=== PATIENT | female | born 1950 | race Caucasian/White ===

== ENCOUNTER 2018-02-21 21:24 | Inpatient (IN) | payer MEDICAID ==
[~2018-02-21] VITALS: Ht 162.6 cm; Wt 60.8 kg
[2018-02-21 21:29] VITALS: BP 173/81
[2018-02-21] MEDS ORDERED: DICYCLOMINE HCL LIQUID 20 MG, ALUMINUM HYD/MAG/SIMETHICONE 30 ML, LIDOCAINE VISCOUS 2% ... PO ONE ×3 (21:40)
[2018-02-21] MEDS ORDERED: ONDANSETRON 4 MG/2 ML VIAL IVP ONE (21:45)
[2018-02-21] MEDS ORDERED: NACL 0.9% 1,000 ML IV ONE ×2 (21:45→23:30)
[2018-02-21 22:10] LABS: BASOPHILS # (AUTO) 0.1 K/uL (0.00-0.22); BASOPHILS % (AUTO) 0.5 % (0.0-2.0); EOSINOPHILS # (AUTO) 0.2 K/uL (0-0.4); EOSINOPHILS % (AUTO) 1.3 % (0.0-4.0); HEMATOCRIT 31.8 % (36-48); HEMOGLOBIN 10.8 g/dL (12.0-16.0); LYMPHOCYTES # (AUTO) 5.9 K/uL (2.5-16.5); LYMPHOCYTES % (AUTO) 47.6 % (20.5-51.1); MEAN CORPUSCULAR HEMOGLOBIN 32 pg (27-31); MEAN CORPUSCULAR HGB CONC 34 g/dL (33-37); MEAN CORPUSCULAR VOLUME 92.9 fL (80-94); MONOCYTES # (AUTO) 0.8 K/uL (0.8-1.0); MONOCYTES % (AUTO) 6.5 % (1.7-9.3); NEUTROPHILS # (AUTO) 5.5 K/uL (1.8-7.7); NEUTROPHILS % (AUTO) 44.1 % (42.2-75.2); PLATELET COUNT (AUTO) 174 K/uL (140-450); RED BLOOD CELL COUNT(AUTO) 3.42 MIL/uL (4.20-5.40); WHITE BLOOD COUNT (AUTO) 12.5 K/uL (4.8-10.8)
[2018-02-21] MEDS ORDERED: MORPHINE SULFATE 4 MG/ML SYR IVP ONE (22:10)
[2018-02-21 22:21] LABS: APPEARANCE,URINE CLEAR (CLEAR); BILIRUBIN,URINE NEGATIVE (NEGATIVE); BLOOD, URINE NEGATIVE (NEGATIVE); COLOR,URINE YELLOW (YELLOW); LEUKOCYTE ESTERASE ,URINE TRACE (NEGATIVE); NITRITE, URINE NEGATIVE (NEGATIVE); UGLUCOSE NEGATIVE (NEGATIVE)
[2018-02-21 22:21] LABS: ANION GAP 17.1 (8-16); CARBON DIOXIDE 23.6 mmol/L (21-32); CREATININE 2.1 mg/dL (0.6-1.3); POTASSIUM 3.7 mmol/L (3.5-5.1)
[2018-02-21 22:27] LABS: ALBUMIN 3.9 g/dL (3.4-5.0); TOTAL BILIRUBIN 0.3 mg/dL (0.0-1.0)
[2018-02-21] MEDS ORDERED: PIPERACILLIN/TAZOBACTAM 3.375 GM in DEXTROSE 5% 50 ML IV ONE (22:55)
[2018-02-21] MEDS ORDERED: PIPERACILLIN/TAZOBACTAM 3.375 GM VIAL IV ONE (23:01)
[2018-02-21] MEDS ORDERED: HYDR-133 PO (23:24)
[2018-02-21] MEDS ORDERED: SYN.05 PO (23:24)
[2018-02-21] MEDS ORDERED: HYDROcodone/APAP 7.5/325 MG 1 TAB PO PRN (23:30)
[2018-02-21] MEDS ORDERED: ACETAMINOPHEN 325 MG TAB PO PRN (23:30)
[2018-02-22 00:06] LABS: BARBITURATE, URINE NEG. ng/ml (NEG <=200); BENZODIAZEPINE, URINE NEG. ng/mL (NEG <=200); CANNABINOID, URINE NEG. ng/mL (NEG <=50); COCAINE, URINE NEG. ng/mL (NEG <=300); OPIATE, URINE NEG. ng/mL (NEG <=2000); PHENCYCLIDINE SCREEN,URINE NEG. ng/mL (NEG <=25)
[2018-02-22 00:22] LABS: CHOL/HDL RATIO 7.1 (1-4.5); FREE T4 (FREE THYROXINE) 0.95 ng/dL (0.76-1.46); MAGNESIUM 2.2 mg/dL (1.8-2.4); PHOSPHORUS 3.2 mg/dL (2.5-4.9); THYROID STIMULATING HORMONE 5.01 uIU/mL (0.34-3.74)
[2018-02-22 00:35] LABS: RBC,URINE 0-5 (RARE) /HPF (0-5); WBC,URINE 0-5 (RARE) /HPF (0-5)
[2018-02-22] MEDS ORDERED: MORPHINE SULFATE 4 MG/ML SYR IVP PRN (00:55)
[2018-02-22 01:36] VITALS: BP 144/70
[2018-02-22] MEDS: NACL 0.9% 1,000 ML IV SCH ×3 (03:00→09:02)
[2018-02-22 04:00] VITALS: BP 146/65
[2018-02-22] MEDS ORDERED: LEVOTHYROXINE 0.05 MG TAB PO SCH (06:30)
[2018-02-22] MEDS: GEMFIBROZIL 600 MG TAB PO SCH ×2 (06:47→16:53)
[2018-02-22 07:01] LABS: BASOPHILS % (AUTO) 0.3 % (0.0-2.0); EOSINOPHILS % (AUTO) 0.3 % (0.0-4.0); HEMATOCRIT 29.8 % (36-48); LYMPHOCYTES # (AUTO) 2.2 K/uL (2.5-16.5); LYMPHOCYTES % (AUTO) 19.2 % (20.5-51.1); MEAN CORPUSCULAR HEMOGLOBIN 31 pg (27-31); MEAN CORPUSCULAR HGB CONC 34 g/dL (33-37); MEAN CORPUSCULAR VOLUME 93.5 fL (80-94); MONOCYTES # (AUTO) 0.5 K/uL (0.8-1.0); MONOCYTES % (AUTO) 4.3 % (1.7-9.3); NEUTROPHILS # (AUTO) 8.8 K/uL (1.8-7.7); NEUTROPHILS % (AUTO) 75.9 % (42.2-75.2); PLATELET COUNT (AUTO) 152 K/uL (140-450); RED BLOOD CELL COUNT(AUTO) 3.19 MIL/uL (4.20-5.40); RED CELL DISTRIBUTION WIDTH 13.2 % (11.6-13.7); WHITE BLOOD COUNT (AUTO) 11.6 K/uL (4.8-10.8)
[2018-02-22 07:27] LABS: CREATININE 1.8 mg/dL (0.6-1.3)
[2018-02-22 08:00] VITALS: BP 129/63
[2018-02-22] MEDS ORDERED: PANTOPRAZOLE 40 MG TABEC PO SCH (09:00)
[2018-02-22] MEDS ORDERED: LEVOFLOXACIN 250 MG/D5 PREMIX 50 ML IV SCH (09:00)
[2018-02-22] MEDS: ATORVASTATIN 20 MG TAB PO SCH ×2 (09:00→09:01)
[2018-02-22] MEDS: LACTOBACILLUS RHAMNOSUS GG 1 EACH CAP PO SCH (09:01)
[2018-02-22] MEDS: DOCUSATE SODIUM 100 MG GELCAP PO SCH ×2 (09:02→21:25)
[2018-02-22 10:06] LABS: MAGNESIUM 1.9 mg/dL (1.8-2.4)
[2018-02-22] MEDS ORDERED: NACL 0.45% 1,000 ML IV SCH (11:00)
[2018-02-22] MEDS ORDERED: KETOROLAC 30 MG/ML VIAL IVP PRN (11:00)
[2018-02-22] MEDS ORDERED: traMADol 50 MG TAB PO PRN (11:00)
[2018-02-22 12:00] VITALS: BP 137/60
[2018-02-22] MEDS ORDERED: CALCIUM GLUCONATE 10% 1,000 MG in NACL 0.9% 100 ML IV SCH (12:00)
[2018-02-22] MEDS ORDERED: PROPYLTHIOURACIL 50 MG TAB PO PRN (12:05)
[2018-02-22] MEDS ORDERED: PROPRANOLOL 20 MG TAB PO PRN (12:05)
[2018-02-22] MEDS: ONDANSETRON 4 MG/2 ML VIAL IVP PRN (12:06)
[2018-02-22] MEDS ORDERED: KETOROLAC 15 MG/ML VIAL IVP PRN (13:00)
[2018-02-22] MEDS ORDERED: MAG SULF 2000 MG/WATER PREMIX 50 ML IV SCH (13:00)
[2018-02-22] MEDS: LACTATED RINGERS 1,000 ML IV SCH ×3 (13:36→21:26)
[2018-02-22 16:00] VITALS: BP 134/62
[2018-02-22 19:56] LABS: ANION GAP 18.3 (8-16); CARBON DIOXIDE 19.8 mmol/L (21-32); CREATININE 1.6 mg/dL (0.6-1.3); POTASSIUM 4.1 mmol/L (3.5-5.1)
[2018-02-22 20:00] VITALS: BP 140/68
[2018-02-22] MEDS: SENNA 8.6 MG TAB PO SCH (21:26)
[2018-02-23] VITALS: BP 130/65
[2018-02-23] MEDS: LACTATED RINGERS 1,000 ML IV SCH ×2 (03:50→08:37)
[2018-02-23 04:00] VITALS: BP 132/65
[2018-02-23 06:22] LABS: T4 (THYROXINE) 6.2 ug/dL (4.5-12.0)
[2018-02-23 06:48] LABS: BASOPHILS % (AUTO) 0.5 % (0.0-2.0); EOSINOPHILS # (AUTO) 0.1 K/uL (0-0.4); EOSINOPHILS % (AUTO) 1.4 % (0.0-4.0); HEMATOCRIT 26.9 % (36-48); HEMOGLOBIN 9.3 g/dL (12.0-16.0); LYMPHOCYTES # (AUTO) 2.1 K/uL (2.5-16.5); LYMPHOCYTES % (AUTO) 24.2 % (20.5-51.1); MEAN CORPUSCULAR HEMOGLOBIN 32 pg (27-31); MEAN CORPUSCULAR HGB CONC 35 g/dL (33-37); MEAN CORPUSCULAR VOLUME 93.1 fL (80-94); MONOCYTES # (AUTO) 0.6 K/uL (0.8-1.0); MONOCYTES % (AUTO) 6.3 % (1.7-9.3); NEUTROPHILS % (AUTO) 67.6 % (42.2-75.2); PLATELET COUNT (AUTO) 142 K/uL (140-450); RED BLOOD CELL COUNT(AUTO) 2.89 MIL/uL (4.20-5.40); RED CELL DISTRIBUTION WIDTH 13.1 % (11.6-13.7); WHITE BLOOD COUNT (AUTO) 8.8 K/uL (4.8-10.8)
[2018-02-23] MEDS: GEMFIBROZIL 600 MG TAB PO SCH ×2 (07:10→16:30)
[2018-02-23] MEDS: PANTOPRAZOLE 40 MG TABEC PO SCH (07:11)
[2018-02-23 07:16] LABS: ANION GAP 14.6 (8-16); CARBON DIOXIDE 22.3 mmol/L (21-32); CREATININE 1.6 mg/dL (0.6-1.3); POTASSIUM 3.9 mmol/L (3.5-5.1)
[2018-02-23 08:00] VITALS: BP 147/74
[2018-02-23] MEDS: ATORVASTATIN 20 MG TAB PO SCH (08:35)
[2018-02-23] MEDS: SENNA 8.6 MG TAB PO SCH ×3 (08:35→20:39)
[2018-02-23] MEDS: DOCUSATE SODIUM 100 MG GELCAP PO SCH ×2 (08:35→20:39)
[2018-02-23] MEDS: LACTOBACILLUS RHAMNOSUS GG 1 EACH CAP PO SCH (08:37)
[2018-02-23] MEDS: ONDANSETRON 4 MG/2 ML VIAL IVP PRN (08:57)
[2018-02-23] MEDS ORDERED: ONDA4ODT1 PO (10:57)
[2018-02-23] MEDS ORDERED: KETOROLAC 30 MG/ML VIAL IVP PRN (14:40)
[2018-02-23 15:08] LABS: FOLIC ACID 11.9 ng/mL (>3.0)
[2018-02-23 16:00] VITALS: BP 140/73
[2018-02-23] MEDS: NACL 0.9% 1,000 ML IV SCH ×2 (16:58→20:39)
[2018-02-23 20:00] VITALS: BP 118/68
[2018-02-24] MEDS: NACL 0.9% 1,000 ML IV SCH ×2 (04:05→11:15)
[2018-02-24] MEDS: GEMFIBROZIL 600 MG TAB PO SCH ×2 (06:36→16:21)
[2018-02-24] MEDS: PANTOPRAZOLE 40 MG TABEC PO SCH (06:37)
[2018-02-24 06:46] LABS: BASOPHILS % (AUTO) 0.4 % (0.0-2.0); EOSINOPHILS # (AUTO) 0.2 K/uL (0-0.4); EOSINOPHILS % (AUTO) 2.1 % (0.0-4.0); HEMATOCRIT 24.3 % (36-48); HEMOGLOBIN 8.3 g/dL (12.0-16.0); LYMPHOCYTES # (AUTO) 2.6 K/uL (2.5-16.5); LYMPHOCYTES % (AUTO) 28.7 % (20.5-51.1); MEAN CORPUSCULAR HEMOGLOBIN 32 pg (27-31); MEAN CORPUSCULAR HGB CONC 34 g/dL (33-37); MEAN CORPUSCULAR VOLUME 93.8 fL (80-94); MONOCYTES # (AUTO) 0.6 K/uL (0.8-1.0); MONOCYTES % (AUTO) 6.3 % (1.7-9.3); NEUTROPHILS # (AUTO) 5.6 K/uL (1.8-7.7); NEUTROPHILS % (AUTO) 62.5 % (42.2-75.2); PLATELET COUNT (AUTO) 130 K/uL (140-450); RED BLOOD CELL COUNT(AUTO) 2.58 MIL/uL (4.20-5.40)
[2018-02-24 07:25] LABS: CREATININE 1.7 mg/dL (0.6-1.3); POTASSIUM 3.9 mmol/L (3.5-5.1)
[2018-02-24 07:33] LABS: MAGNESIUM 1.9 mg/dL (1.8-2.4); PHOSPHORUS 3.7 mg/dL (2.5-4.9)
[2018-02-24 09:53] LABS: ANION GAP 15.2 (8-16); CARBON DIOXIDE 20.7 mmol/L (21-32)
[2018-02-24] MEDS: SENNA 8.6 MG TAB PO SCH (09:55)
[2018-02-24] MEDS: LACTOBACILLUS RHAMNOSUS GG 1 EACH CAP PO SCH (09:55)
[2018-02-24] MEDS: DOCUSATE SODIUM 100 MG GELCAP PO SCH (09:55)
[2018-02-24] MEDS: ATORVASTATIN 20 MG TAB PO SCH (09:55)
[2018-02-24 10:29] VITALS: BP 147/66
[2018-02-24] MEDS ORDERED: AMYLASE/LIPASE/PROTEASE 1 CAPDR PO SCH (12:00)
[2018-02-24] MEDS ORDERED: MAGN241.1 PO (13:12)
[2018-02-24] MEDS ORDERED: OSC500 PO (13:12)
[2018-02-24] MEDS ORDERED: KETO10TA2 PO (13:12)
[2018-02-24] MEDS ORDERED: [UNRECOGNIZED DRUG - CODE] PO (15:29)
[2018-02-24] MEDS ORDERED: ATOR20TA40 PO (15:29)
[2018-02-24] MEDS ORDERED: GEMF600T8 PO (15:29)
[2018-02-24 15:45] VITALS: BP 144/68
== END 2018-02-24 17:25 | disposition home or self-care (01) | DRG 282 ==
LOC: MED 21:24 → MTU 23:30
PROVIDERS: ADMIT Student in an Organized Health Care Education/Training Program; ATTEND Student in an Organized Health Care Education/Training Program
DX: K85.90 Acute pancreatitis without necrosis or infection, unspecified (principal); N17.0 Acute kidney failure with tubular necrosis; E87.0 Hyperosmolality and hypernatremia; E87.8 Other disorders of electrolyte and fluid balance, not elsewhere classified; E11.51 Type 2 diabetes mellitus with diabetic peripheral angiopathy without gangrene; K86.1 Other chronic pancreatitis; I16.0 Hypertensive urgency; D64.9 Anemia, unspecified; N39.0 Urinary tract infection, site not specified; E78.2 Mixed hyperlipidemia; E78.1 Pure hyperglyceridemia; E03.9 Hypothyroidism, unspecified; E86.0 Dehydration; I10 Essential (primary) hypertension; Z91.040 Latex allergy status
CPT/HCPCS: 36415; 71045; 76705; 80048; 80053; 80305; 81001; 82150; 82607; 82728; 82746; 83036; 83540; 83605; 83690; 83735; 83880; 84100; 84436; 84439; 84443; 84479; 84484; 85025; 85045; 85610; 85730; 87040; 87081; 87086; 93005; 96374; 96375; 99291; J0610; J1885; J1956; J2270; J2405; J2543; J3475; J7030; J7120; Q0092

== ENCOUNTER 2018-11-08 10:04 | Emergency (ER) | payer MEDICAID ==
[~2018-11-08] VITALS: Ht 162.6 cm; Wt 59.0 kg
[~2018-11-08 10:04] MED LIST: ATOR20TA40 PO; GEMF-65 PO; KETO10TA2 PO; MAGN241.1 PO; ONDA-121 PO; OSC500 PO; [UNRECOGNIZED DRUG - CODE] PO
[2018-11-08 10:11] VITALS: BP 141/73
--- NOTE | 2018-11-08 10:16 | NUR ---
PT TO BED 5 VIA WHEELCHAIR
--- NOTE | 2018-11-08 10:25 | NUR ---
68/ F BIB FAMILY PRESENTS TO ED WITH C/O ACUTE EPIGASTRIC PAIN OF THIS MORNING. . PT STATES PAIN IS 9/10, CONSTANT THROBBING, RADIATING TO BACK, AND YELLOW VOMIT . DENIES DIARRHEA AND FEVER; SKIN IS PINK/WARM/DRY; AAOX4 WITH EVEN AND STEADY GAIT; LUNGS CLEAR BL; HR EVEN AND REGULAR. VSS; PATIENT POSITIONED FOR COMFORT; HOB ELEVATED; BEDRAILS UP X2; BED DOWN. ER MD MADE AWARE OF PT STATUS.
--- NOTE | 2018-11-08 10:27 | NUR ---
Patient being evaluated by physician at bedside.
[2018-11-08] MEDS ORDERED: NACL 0.9% 500 ML IV ONE (10:40)
[2018-11-08] MEDS ORDERED: ONDANSETRON 4 MG/2 ML VIAL IVP ONE (10:40)
[2018-11-08] MEDS ORDERED: KETOROLAC 30 MG/ML VIAL IVP ONE (10:40)
[2018-11-08 11:12] LABS: BASOPHILS # (AUTO) 0.1 K/uL (0.00-0.22); BASOPHILS % (AUTO) 0.5 % (0.0-2.0); EOSINOPHILS # (AUTO) 0.1 K/uL (0-0.4); EOSINOPHILS % (AUTO) 0.7 % (0.0-4.0); HEMATOCRIT 30.3 % (36-48); HEMOGLOBIN 10.1 g/dL (12.0-16.0); LYMPHOCYTES # (AUTO) 2.2 K/uL (2.5-16.5); LYMPHOCYTES % (AUTO) 22.5 % (20.5-51.1); MEAN CORPUSCULAR HEMOGLOBIN 31 pg (27-31); MEAN CORPUSCULAR HGB CONC 34 g/dL (33-37); MEAN CORPUSCULAR VOLUME 92.5 fL (80-94); MONOCYTES # (AUTO) 0.4 K/uL (0.8-1.0); MONOCYTES % (AUTO) 3.9 % (1.7-9.3); NEUTROPHILS # (AUTO) 7.2 K/uL (1.8-7.7); NEUTROPHILS % (AUTO) 72.4 % (42.2-75.2); PLATELET COUNT (AUTO) 177 K/uL (140-450); RED BLOOD CELL COUNT(AUTO) 3.27 MIL/uL (4.20-5.40); RED CELL DISTRIBUTION WIDTH 12.7 % (11.6-13.7); WHITE BLOOD COUNT (AUTO) 9.9 K/uL (4.8-10.8)
--- NOTE | 2018-11-08 11:15 | NUR ---
ULTRASOUND AT BEDSIDE
[2018-11-08 11:25] LABS: ANION GAP 18.1 (8-16); CREATININE 2.2 mg/dL (0.6-1.3); POTASSIUM 4.1 mmol/L (3.5-5.1)
[2018-11-08 11:30] LABS: ALBUMIN 3.8 g/dL (3.4-5.0); TOTAL BILIRUBIN 0.5 mg/dL (0.0-1.0)
[2018-11-08 12:28] VITALS: BP 129/67
--- NOTE | 2018-11-08 12:28 | NUR ---
Patient discharged with v/s stable. Written and verbal after care instructions given and explained. Patient alert, oriented and verbalized understanding of instructions. Ambulatory with steady gait. All questions addressed prior to discharge. ID band removed. Patient advised to follow up with PMD. Rx of ZOFRAN, TRAMADOL, AND PROTONIX given. Patient educated on indication of medication including possible reaction and side effects. Opportunity to ask questions provided and answered.
== END 2018-11-08 12:28 | disposition home or self-care (01) ==
LOC: MED 10:04
DX: K29.70 Gastritis, unspecified, without bleeding (principal); I10 Essential (primary) hypertension; Z79.899 Other long term (current) drug therapy; Z91.040 Latex allergy status
CPT/HCPCS: 36415; 76705; 80053; 83690; 85025; 96361; 96374; 96375; 99284; J1885; J2405; J7030; Q0092

== ENCOUNTER 2019-06-10 21:04 | Emergency (ER) | payer MEDICAID ==
[~2019-06-10] VITALS: Ht 162.6 cm; Wt 56.9 kg
[~2019-06-10 21:04] MED LIST changes: -ONDA-121 PO; +ONDA-24 PO
[2019-06-10 21:10] VITALS: BP 193/83
--- NOTE | 2019-06-10 21:18 | NUR ---
PT AMBULATED TO LOBBY WITH STEADY GAIT. AWAITING AVAILABLE BED.
--- NOTE | 2019-06-10 21:18 | NUR ---
68 YO F BIB SON PRESENTS TO ED C/O ALLERGIC REACTION. PT STATES SHE WAS AT A CONSTITUTION PARTY AT A PARK WHEN SHE STARTED TO ITCH ALL OVER BODY. PT PRESENTS WITH HIVES TO FACE, NECK, UPPER AND LOWER EXTREMETIES, AND ABDOMEN. PT DENIES SOB. SPO2- 100%. PT STATES ONLY ALLERGY IS LATEX AND DENIES EXPOSURE TO LATEX. -- PT AWAKE, ALERT, ANSWERS QUESTIONS APPROPRIATELY, BEHAVIOR AGE APPROPRIATE. -- SKIN PINK, WARM, DRY. BREATHING EVEN, UNLABORED. PMH-- HTN, HYPERLIPIDEMIA, VITAMIN D DEFICIENCY
[2019-06-10] MEDS ORDERED: diphenhydrAMINE 50 MG/ML VIAL IM ONE (21:25)
[2019-06-10] MEDS ORDERED: DEXAMETHASONE 10 MG/ML VIAL IM ONE (21:25)
--- NOTE | 2019-06-10 21:25 | NUR ---
DR. CHILDS MADE AWARE OF ALLERGIC REACTION. ORDERS RECEIVED.
--- NOTE | 2019-06-10 21:39 | NUR ---
PT AMBULATED TO CHAIR B FOR MONITORING.
--- NOTE | 2019-06-10 22:13 | NUR ---
DR. CHILDS EVALUATING PT IN CHAIR.
[2019-06-10 22:30] VITALS: BP 147/79
--- NOTE | 2019-06-10 22:30 | NUR ---
DISCHARGE PAPERS GIVE TO PT. RX OF PREDNISONE, DIPHENHYDRAMINE, AND XYZAL GIVEN. SIDE EFFECTS EXPLAINED. PT DC'D WITHOUT SOB/DYSPNEA, NO HIVES, NO C/O AND VSS. PT STATES FEELING BETTER UPON DC. INSTRUCTED TO F/U WITH PCP AND WHEN TO RETURN TO ER. PT VERBALLIZED UNDERSTANDING OF DC INSTRUCTIONS. ALL QEUSTIONS ANSWERED.
== END 2019-06-10 22:30 | disposition home or self-care (01) ==
LOC: MED 21:04
DX: L50.8 Other urticaria (principal); I10 Essential (primary) hypertension; E78.00 Pure hypercholesterolemia, unspecified; Z79.899 Other long term (current) drug therapy; Z88.6 Allergy status to analgesic agent; Z91.040 Latex allergy status
CPT/HCPCS: 96372; 99283; J1100; J1200

== ENCOUNTER 2019-06-29 10:17 | Emergency (ER) | payer MEDICAID ==
[~2019-06-29] VITALS: Ht 162.6 cm; Wt 54.9 kg
[2019-06-29 10:25] VITALS: BP 153/74
--- NOTE | 2019-06-29 10:55 | NUR ---
PT BIB FAMILY MEMBER WITH C/O PAIN IN BILAT SHOULDERS & BACK 5/10 ACCOMPANIED BY DIZZINESS X2 DAYS. DENIES INJURY. PT REPORTS SHE HAS A PROBLEM WITH HER KIDNEYS THAT "THEY ONLY WORK 22%". FSBS 162. PT STATES TO HAVE CHILLS AT NIGHT, HAS NAUSEA. DENIES ANY FEVER , CP, SOB AT THIS TIME. STATES TO HAVE MILD LAU, HAD CHILLS LAST NIGHT WITH RUNNY NOSE. ER MD TO SEE THE PT. PT CONNECTED TO THE MONITOR. LYING COMFORTABLY IN HER BED. WILL CONTINUE TO MONITOR PT. HX: HTN RX: UNOBTAINANBLE
[2019-06-29] MEDS ORDERED: MECLIZINE 25 MG TAB PO ONE (11:25)
[2019-06-29] MEDS ORDERED: KETOROLAC 60 MG/2 ML VIAL IM ONE (11:25)
--- NOTE | 2019-06-29 11:30 | NUR ---
pt lying comfortably in her bed. gave meds as ordered. will continue to monitor pt.
[2019-06-29 12:22] VITALS: BP 139/72
--- NOTE | 2019-06-29 12:23 | NUR ---
Patient discharged with v/s stable. Written and verbal after care instructions given and explained. Patient alert, oriented and verbalized understanding of instructions. Ambulatory with steady gait. All questions addressed prior to discharge. ID band removed. Patient advised to follow up with PMD. Rx of meclizine and motrin given. Patient educated on indication of medication including possible reaction and side effects. Opportunity to ask questions provided and answered.
== END 2019-06-29 12:23 | disposition home or self-care (01) ==
LOC: MED 10:17
DX: S16.1XXA Strain of muscle, fascia and tendon at neck level, initial encounter (principal); M25.511 Pain in right shoulder; M25.512 Pain in left shoulder; R42 Dizziness and giddiness; R11.0 Nausea; I10 Essential (primary) hypertension; Z79.899 Other long term (current) drug therapy; Z88.6 Allergy status to analgesic agent; Z91.040 Latex allergy status; X58.XXXA Exposure to other specified factors, initial encounter; Y93.89 Activity, other specified; Y92.89 Other specified places as the place of occurrence of the external cause; Y99.8 Other external cause status
CPT/HCPCS: 72040; 96372; 99283; J1885; J8597

== ENCOUNTER 2019-10-26 08:27 | Emergency (ER) | payer MEDICAID ==
[~2019-10-26] VITALS: Ht 162.6 cm; Wt 56.2 kg
[2019-10-26 08:37] VITALS: BP 162/72
--- NOTE | 2019-10-26 08:40 | NUR ---
68 Y/O FEMALE PRESENTING WITH C/C OF VOMINING/NAUSEA AND DIZZINESS X1, PER PT STARTED TODAY AT 0715 HOURS. PT ALLERGIES TO LATEX. MEDICAL HX OF HTN, HDL, KIDNEY PROBLEMS. RX HTN, HDL, OMEPRAZOLE. PER PT NO DIARREAH. PT BOWEL SOUNDS NORMOACTIVE.
--- NOTE | 2019-10-26 08:43 | NUR ---
PT AMBULATED TO RESTROOM
--- NOTE | 2019-10-26 08:54 | NUR ---
dr prasad at bedside
[2019-10-26] MEDS ORDERED: ONDANSETRON 4 MG ODT PO ONE (08:55)
[2019-10-26] MEDS ORDERED: MECLIZINE 25 MG TAB PO ONE (08:55)
--- NOTE | 2019-10-26 09:07 | NUR ---
KAREN, EMT AT BEDSIDE FOR EKG
--- NOTE | 2019-10-26 09:21 | NUR ---
PT RESTING IN BED, VSS STABLE, FAMILY AT BEDSIDE. SIDE RAIL X1.
--- NOTE | 2019-10-26 09:53 | NUR ---
PT RESTING IN BED, PREETI NAUSEA AT THIS TIME. AT BEDSIDE.
[2019-10-26] MEDS ORDERED: LORazepam 0.5 MG TAB PO ONE (10:05)
--- NOTE | 2019-10-26 10:13 | NUR ---
pt stable, resting in bed, side rail x1, vss wdl
--- NOTE | 2019-10-26 11:09 | NUR ---
PT RESTING IN BED, FAMILY AT BEDSIDE, SIDE RAIL X1
[2019-10-26 11:22] VITALS: BP 122/57
--- NOTE | 2019-10-26 11:22 | NUR ---
Patient discharged with v/s stable. Written and verbal after care instructions given and explained. Patient alert, oriented and verbalized understanding of instructions. Ambulatory with steady gait. All questions addressed prior to discharge. ID band removed. Patient advised to follow up with PMD. Rx of ZOFRAN, MECLIZINE given. Patient educated on indication of medication including possible reaction and side effects. Opportunity to ask questions provided and answered.
== END 2019-10-26 11:22 | disposition home or self-care (01) ==
LOC: MED 08:27
DX: R42 Dizziness and giddiness (principal); R11.2 Nausea with vomiting, unspecified; I10 Essential (primary) hypertension; E07.9 Disorder of thyroid, unspecified; Z79.899 Other long term (current) drug therapy; Z91.040 Latex allergy status; Z98.890 Other specified postprocedural states
CPT/HCPCS: 81002; 93005; 99284; J8597; Q0162

== ENCOUNTER 2020-01-24 02:07 | Emergency (ER) | payer MEDICAID ==
[~2020-01-24] VITALS: Ht 162.6 cm; Wt 59.9 kg
[2020-01-24 02:10] VITALS: BP 144/69
--- NOTE | 2020-01-24 02:13 | NUR ---
TO LOBBY A/W BED AMBULATORY
[2020-01-24] MEDS ORDERED: NACL 0.9% 1,000 ML IV ONE (04:15)
[2020-01-24] MEDS ORDERED: ONDANSETRON 4 MG/2 ML VIAL IVP ONE (04:15)
--- NOTE | 2020-01-24 04:20 | NUR ---
PT AMBULATED TO BED 5 WITH STEADY GAIT.
--- NOTE | 2020-01-24 04:25 | NUR ---
PT 69 Y/O FEMALE BIB FOR C/O VOMITING AT HOME SINCE 1 AM. PT HAS C/O DIZZYNESS AND SHARP UPPER ABD PAIN 3/10 WHEN VOMITING. ABD IS ROUND, SOFT, AND TENDER TO TOUCH. PT HAD X 1 EPISODE OF VOMITING. EMISIS IS YELLOW IN COLOR. PT BS PRESENT X 4. RESPIRATIONS ARE EVEN AND UNALBORED. SKIN IS WARM AND DRY TO TOUCH. AT BEDSIDE. PT ON MONITOR. VSS. MEDHX: HYPOTHYROID, HTN ALLERGIES: LATEX
--- NOTE | 2020-01-24 04:30 | NUR ---
IV PLACED IN R WRIST. IV SITE PATENT. NO SWELLING OR C/O PAIN AT THIS TIME. LABS COLLECTED. IVF STARTED NS 0.9% RUNNING CONTINOUSLY.
--- NOTE | 2020-01-24 04:40 | NUR ---
ZOFRAN 4MG IVP GIVEN FOR N/V X 1 EPISODE. IV SITE PATENT. NO REDNESS, SWELLING OR COMPLAINT OF PAIN.
--- NOTE | 2020-01-24 05:01 | NUR ---
PT STATES THAT ZOFRAN HAS RELIVED NAUSEA. NO FURTHER EPISODES OF VOMITING AT THIS TIME.
[2020-01-24 05:40] LABS: BASOPHILS % (AUTO) 0.3 % (0.0-2.0); EOSINOPHILS % (AUTO) 0.2 % (0.0-4.0); HEMATOCRIT 29.3 % (36-48); HEMOGLOBIN 10.1 g/dL (12.0-16.0); LYMPHOCYTES # (AUTO) 2.2 K/uL (2.5-16.5); LYMPHOCYTES % (AUTO) 22.3 % (20.5-51.1); MEAN CORPUSCULAR HEMOGLOBIN 32 pg (27-31); MEAN CORPUSCULAR HGB CONC 34 g/dL (33-37); MEAN CORPUSCULAR VOLUME 94.5 fL (80-94); MONOCYTES # (AUTO) 0.5 K/uL (0.8-1.0); MONOCYTES % (AUTO) 4.9 % (1.7-9.3); NEUTROPHILS # (AUTO) 7.2 K/uL (1.8-7.7); NEUTROPHILS % (AUTO) 72.3 % (42.2-75.2); PLATELET COUNT (AUTO) 162 K/uL (140-450); RED CELL DISTRIBUTION WIDTH 12.1 % (11.6-13.7); WHITE BLOOD COUNT (AUTO) 9.9 K/uL (4.8-10.8)
[2020-01-24 05:48] LABS: ALBUMIN 3.8 g/dL (3.4-5.0); ANION GAP 15.7 (8-16); CARBON DIOXIDE 21.5 mmol/L (21-32); CREATININE 2.3 mg/dL (0.6-1.3); POTASSIUM 3.2 mmol/L (3.5-5.1); TOTAL BILIRUBIN 0.3 mg/dL (0.0-1.0)
--- NOTE | 2020-01-24 06:00 | NUR ---
PT AMBULATED TO RESTROOM WITH STEADY GAIT. UA COLLECTED.
--- NOTE | 2020-01-24 06:46 | NUR ---
DR. GIBBS AT BEDSIDE.
--- NOTE | 2020-01-24 07:00 | NUR ---
REPORT GIVEN TO CHANLE SO.
--- NOTE | 2020-01-24 07:11 | NUR ---
PT RESTING IN BED, SIDE RAIL X1
[2020-01-24 07:17] LABS: BILIRUBIN,URINE NEGATIVE (NEGATIVE); BLOOD, URINE NEGATIVE (NEGATIVE); COLOR,URINE YELLOW (YELLOW); LEUKOCYTE ESTERASE ,URINE NEGATIVE (NEGATIVE); NITRITE, URINE NEGATIVE (NEGATIVE); UGLUCOSE NEGATIVE (NEGATIVE)
[2020-01-24 07:24] LABS: APPEARANCE,URINE CLEAR (CLEAR)
[2020-01-24 08:51] VITALS: BP 126/80
--- NOTE | 2020-01-24 08:51 | NUR ---
Patient discharged with v/s stable. Written and verbal after care instructions given and explained. Patient alert, oriented and verbalized understanding of instructions. Ambulatory with steady gait. All questions addressed prior to discharge. ID band removed. Patient advised to follow up with PMD. Rx of miralax,zofran given. Patient educated on indication of medication including possible reaction and side effects. Opportunity to ask questions provided and answered.
== END 2020-01-24 08:51 | disposition home or self-care (01) ==
LOC: MED 02:07
DX: R10.13 Epigastric pain (principal); R11.2 Nausea with vomiting, unspecified; I10 Essential (primary) hypertension; E07.9 Disorder of thyroid, unspecified; Z90.49 Acquired absence of other specified parts of digestive tract; Z79.899 Other long term (current) drug therapy; Z91.040 Latex allergy status
CPT/HCPCS: 36415; 74176; 80053; 81003; 82150; 83690; 84484; 85025; 96361; 96374; 99284; J2405; J7030

== ENCOUNTER 2020-10-08 19:25 | Inpatient (IN) | payer MEDICAID, SELFPAY ==
[~2020-10-08] VITALS: Ht 162.6 cm; Wt 54.0 kg
[2020-10-08 19:27] VITALS: BP 161/68
--- NOTE | 2020-10-08 19:38 | NUR ---
69 Y/O FEMALE PRESENTED TO ED C/O CHEST PAIN X 2 DAYS . PT STATES ITS PRESSURE 2/10 PAIN NONRADIATING BUT DOES HAVE TINGLING IN LEFT HAND. PT + NAUSEA BUT NOT VOMITTING AT THIS TIME. PT DENIES FEVER, BODY ACHES, CHILLS. CAP REFIL < 3 SEC, NO EDEMA NOTED. A/O X 4 . RR EVEN AND UNLABORED. SKIN PINK WARM AND INTACT. PT RESTING IN BED, LOCK AND IN LOWEST POSITION ,HOB ELEVATED, SIDE RAIL X2 FOR PT SAFETY. PT CONNECTED TO CARIDAC MONITOR, PULSE OX AND BP CUFF. PT PLACED IN GOWN AND PROVIDED BLANKET AT THIS TIME. NO ACUTE DISTRESS NOTED AT THIS TIME. ERMD MADE AWARE OF PT STATUS. PMH: ANEMIA , HYPOTHYROID, CKD - NO DIALYSIS PER PT , HTN AX: LATEX
--- NOTE | 2020-10-08 19:38 | NUR ---
PT AMBULATED TO BED #11
--- NOTE | 2020-10-08 20:00 | NUR ---
IV PLACED AND BLOOD LABS COLLECTED AND HANDED TO LAB.
--- NOTE | 2020-10-08 20:03 | NUR ---
XRAY AT BEDSIDE.
[2020-10-08] MEDS ORDERED: ONDANSETRON 4 MG/2 ML VIAL IVP ONE (20:10)
[2020-10-08] MEDS ORDERED: NACL 0.9% 1,000 ML IV ONE ×3 (20:10→22:35)
--- NOTE | 2020-10-08 20:15 | NUR ---
OBSERVED PT X 1 EPISODE OF VOMIT . PT PROVIDED NEW EMESIS BAG AND TISSUES. ERMD ORDER ZOFRAN FOR NAUSEA.
[2020-10-08 20:33] LABS: BASOPHILS # (AUTO) 0.1 K/uL (0.00-0.22); BASOPHILS % (AUTO) 0.6 % (0.0-2.0); EOSINOPHILS # (AUTO) 0.1 K/uL (0-0.4); EOSINOPHILS % (AUTO) 1.1 % (0.0-4.0); HEMATOCRIT 30.5 % (36-48); HEMOGLOBIN 10.3 g/dL (12.0-16.0); LYMPHOCYTES # (AUTO) 5.2 K/uL (2.5-16.5); LYMPHOCYTES % (AUTO) 40.5 % (20.5-51.1); MEAN CORPUSCULAR HEMOGLOBIN 32 pg (27-31); MEAN CORPUSCULAR HGB CONC 34 g/dL (33-37); MEAN CORPUSCULAR VOLUME 93.1 fL (80-94); MONOCYTES # (AUTO) 0.6 K/uL (0.8-1.0); MONOCYTES % (AUTO) 4.8 % (1.7-9.3); NEUTROPHILS # (AUTO) 6.8 K/uL (1.8-7.7); PLATELET COUNT (AUTO) 152 K/uL (140-450); RED BLOOD CELL COUNT(AUTO) 3.27 MIL/uL (4.20-5.40); RED CELL DISTRIBUTION WIDTH 12.7 % (11.6-13.7); WHITE BLOOD COUNT (AUTO) 12.9 K/uL (4.8-10.8)
[2020-10-08 20:57] LABS: ALBUMIN 4.2 g/dL (3.4-5.0); CARBON DIOXIDE 21.2 mmol/L (21-32); CREATININE 2.4 mg/dL (0.6-1.3); POTASSIUM 4.2 mmol/L (3.5-5.1); TOTAL BILIRUBIN 0.4 mg/dL (0.0-1.0)
--- NOTE | 2020-10-08 21:19 | NUR ---
PT C/O HEADACHE 05/25 AT THIS TIME. ERMD MADE AWARE AND WILL ORDER PAIN MEDICATION AT THIS TIME.
[2020-10-08] MEDS ORDERED: MORPHINE SULFATE 4 MG/ML SYR IVP ONE (21:20)
--- NOTE | 2020-10-08 21:21 | NUR ---
PT AMBULATED TO RESTROOM W/ STEADY GAIT.
--- NOTE | 2020-10-08 21:23 | NUR ---
PER PT - AUTHORIZATION TO PROVIDE INFORMATION ON CURRENT STATUS AT THIS TIME.
[2020-10-08] MEDS ORDERED: ASPIRIN 81 MG TAB.CHEW PO ONE (22:25)
--- NOTE | 2020-10-08 22:26 | NUR ---
PT PROVIDE URINE CUP TO ENCOURAGE URINE SAMPLE. PT AMBULATER TO RESTROOM W/ STEADY GAIT.
--- NOTE | 2020-10-08 22:27 | NUR ---
PER CHERRI SAVAGE - REPEAT EKG AND ADMINISTER ASPIRIN AT THIS TIME.
--- NOTE | 2020-10-08 22:38 | NUR ---
CHARISMA JHON SWAB COLLECTED AND HANDED TO LAB.
--- NOTE | 2020-10-08 22:38 | NUR ---
URINE SAMPLE COLLECTED AND WALKED TO LAB.
--- NOTE | 2020-10-08 22:40 | NUR ---
PT STATES SHE DOES NOT REMEMBER HER MEDICATIONS AT THIS TIME.
[2020-10-08 22:54] LABS: APPEARANCE,URINE CLEAR (CLEAR); BILIRUBIN,URINE NEGATIVE (NEGATIVE); BLOOD, URINE NEGATIVE (NEGATIVE); COLOR,URINE YELLOW (YELLOW); LEUKOCYTE ESTERASE ,URINE NEGATIVE (NEGATIVE); NITRITE, URINE NEGATIVE (NEGATIVE); UGLUCOSE NEGATIVE (NEGATIVE)
--- NOTE | 2020-10-08 23:10 | NUR ---
PT BEKA WILLIAMSON, CONTACT INFORMATION CELL
--- NOTE | 2020-10-08 23:13 | NUR ---
CONTACT AFTER HOURS PHARMACY FOR VERIFICATION OF MEDICATIONS AT THIS TIME.
--- NOTE | 2020-10-08 23:16 | NUR ---
TRIED CALLING PT BEKA AT THIS TIME. UNABLE TO HEAR HIM ON THE OTHER LINE. WILL TRY AGAIN LATER.
--- NOTE | 2020-10-09 00:30 | NUR ---
PT SLEEPING AT THIS TIME, VISIBLE RISE AND FALL OF CHEST. AROUSABLE TO VERBAL STIMULATION. RR EVEN AND UNLABORED. BED LOCKED AND IN LOWEST POSITION, HOB ELEVATED, SIDE RAIL X1. VSS. NO ACUTE DISTRESS NOTED AT THIS TIME.
--- NOTE | 2020-10-09 01:18 | NUR ---
PT AMBULATED TO RESTROOM W/ STEADY GAIT.
--- NOTE | 2020-10-09 01:26 | NUR ---
PT RETURNED FROM RESTROOM W/ STEADY GAIT. PT RECONNECTED TO DIGITAL ACCOUNT COORDINATOR , PULSE OX AND FLUIDS AT THIS TIME.
--- NOTE | 2020-10-09 04:25 | NUR ---
SARAY PEDRO SPOKE W/ BEKA REGARDING PT ADMITTING STATUS AND INFORMATION ON PT HOME MEDS AT THIS TIME. PER HE WILL DROP OFF PT HOME MEDICATIONS AND CELL PHONE , ETA 10 - 15 MINS.
--- NOTE | 2020-10-09 04:35 | NUR ---
PT AMBULATED TO RESTROOM W/ STEADY GAIT.
--- NOTE | 2020-10-09 04:40 | NUR ---
PT AMBULATED TO ER BED 11 W/ STEADY GAIT. PT RECONNECTED TO STATISTICAL CLERK , BP AND PULSE OX AT THIS TIME.
[2020-10-09] MEDS ORDERED: SODI650T2 PO (04:55)
[2020-10-09] MEDS ORDERED: CHLO25TA33 PO (04:55)
[2020-10-09] MEDS ORDERED: OMEP20TC10 PO (04:55)
[2020-10-09] MEDS ORDERED: NIFE30TE5 PO (04:55)
--- NOTE | 2020-10-09 05:15 | NUR ---
PT PROVIDED PHONE , PHONE TWINE REELING MACHINE OPERATOR AND HOME MEDS BROUGHT BY AT THIS TIME.
--- NOTE | 2020-10-09 05:44 | NUR ---
LAB AT BEDSIDE FOR MORNING DRAW.
--- NOTE | 2020-10-09 07:12 | NUR ---
REPORT GIVEN TO SARAY IVERSON FOR TRANSFER OF CARE.
--- NOTE | 2020-10-09 07:57 | NUR ---
Gave report to Owen for pending admission 111-A. ETA 5-10minutes.
[2020-10-09] MEDS ORDERED: DOCUSATE SODIUM 100 MG GELCAP PO PRN (08:00)
[2020-10-09] MEDS ORDERED: HYDROcodone/APAP 7.5/325 MG 1 TAB PO PRN (08:00)
[2020-10-09] MEDS ORDERED: ONDANSETRON 4 MG/2 ML VIAL IM/IVP PRN (08:00)
[2020-10-09] MEDS ORDERED: guaiFENesin DM 200/20 MG-10 ML 10 ML UDC PO PRN (08:00)
[2020-10-09] MEDS ORDERED: ZOLPIDEM 5 MG TAB PO PRN (08:00)
[2020-10-09] MEDS ORDERED: ACETAMINOPHEN 325 MG TAB PO PRN (08:00)
[2020-10-09] MEDS ORDERED: POTASSIUM CHLORIDE 10 MEQ TABER PO PRN (08:00)
[2020-10-09] MEDS ORDERED: NITROGLYCERIN 0.4 MG TAB SL PRN (08:05)
--- NOTE | 2020-10-09 08:19 | NUR ---
RECEIVED THIS 69YEAR OLD FEMALE PER KARLENE FROM ER, ADMITTED A CASE OF CHEST PAIN AND TACHYCARDIA UNDER THE CARE OF DR. BARNES, AWAKE , ALERT, ORIENTEDX4, [place] SPEAKER, BREATHING SPONTANEOUSLY AT ROOM AIR, NON LABORED NOTED. WITH ONGOING IV FLUID WITH 0.9% NS AT 60ML/HOUR INFUSING AT RT AC G20 IV CANNULA NOTED. SAFETY MEASURES IN PLACE AND CONTINUE MONITOR. CARDIAC DIET SERVED.
--- NOTE | 2020-10-09 08:22 | NUR ---
Patient will be admitted to care of Dr. Luna Ledezma. Admited to tele. Will go to room 111A. Belongings list completed. Report to Owen SO.
[2020-10-09] MEDS: NACL 0.9% 1,000 ML IV SCH (08:23)
[2020-10-09] MEDS: NIFEdipine 30 MG TABER PO SCH (08:42)
[2020-10-09] MEDS: METOPROLOL 25 MG TAB PO SCH ×2 (08:43→20:53)
[2020-10-09] MEDS: lisinopriL 5 MG TAB PO SCH (08:43)
[2020-10-09] MEDS: PANTOPRAZOLE 40 MG TABEC PO SCH (08:44)
[2020-10-09] MEDS: ECOTRIN 81 MG TABEC PO SCH (08:44)
[2020-10-09 08:46] LABS: PROTHROMBIN TIME 10.2 secs (10.8-13.4)
[2020-10-09] MEDS: CHLORTHALIDONE 25MG TAB PO SCH (08:46)
--- NOTE | 2020-10-09 08:54 | NUR ---
FULLY AWAKE AND ALERT, DUE MEDICATION GIVEN. MRSA NARES SWAB DONE AND SENT TO LAB.
[2020-10-09 08:56] LABS: CHOL/HDL RATIO 5.3 (1-4.5); FREE T4 (FREE THYROXINE) 0.94 ng/dL (0.76-1.46); MAGNESIUM 1.7 mg/dL (1.8-2.4); PHOSPHORUS 4.2 mg/dL (2.5-4.9); THYROID STIMULATING HORMONE 3.27 uIU/mL (0.34-3.74)
[2020-10-09] MEDS ORDERED: CHLORTHALIDONE PO SCH (09:00)
[2020-10-09 09:49] LABS: BARBITURATE, URINE NEGATIVE ng/ml (NEG <=200); BENZODIAZEPINE, URINE NEGATIVE ng/mL (NEG <=200); CANNABINOID, URINE NEGATIVE ng/mL (NEG <=50); COCAINE, URINE NEGATIVE ng/mL (NEG <=300); OPIATE, URINE POSITIVE ng/mL (NEG <=2000); PHENCYCLIDINE SCREEN,URINE NEGATIVE ng/mL (NEG <=25)
--- NOTE | 2020-10-09 10:26 | NUR ---
AWAKE, NO COMPLAINED OF CHEST PAIN NOTED
--- NOTE | 2020-10-09 11:23 | NUR ---
DC PLANNIN YRS OLD FEMALE PATIENT WAS ADMITTED FROM HOME WITH A DX OF CHEST PAIN , TACHYCARDIA. PT HAS A HX OF HTN, HLD, CHRONIC KIDNEY DISEASE AND ANEMIA. CXR SHOWED NO RADIOGRAPHIC FINDINGS OF AN ACUTE INTRATHORACIC PROCESS. RAPID COVID TEST NEGATIVE. ADMINISTERED IVF, AND CONTINUE HOME MEDS. CONSULTED WITH HORSE RANCHER AND NEPHRO. DC PLAN TO GO HOME WHEN STABLE CM TO FOLLOW.
--- NOTE | 2020-10-09 11:26 | NUR ---
SOCIAL WORK NOTE: Patient's Orientation Unable To Assess Information Provided By BEKA GONZALES - Comments SW WAS UNABLE TO MEET PATIENT AT BEDSIDE DUE TO MEDICAL CONDITION. SW CONTACTED PATIENT'S , BEKA TO COMPLETE ASSESSMENT. SW USED SECURITY PROFESSIONAL CLARITA [id number]. Staff Development Nurse, Realtionship and Phone Number BEKA WILLIAMSON [phone] Healthcare Power of Electrical Maintenance Technician No Does Patient Have a POLST No Identifying Problems No Social Work Triggers Is A Social Work Consult Needed No Mandate Report Filed No Explanation Of Identifying Problems PATIENT IS A 69-YEAR-OLD FEMALE ADMITTED FOR CHEST PAIN AND TACHYCARDIA. PATIENT HAS PMHX OF HYPERTENSION, RENAL DISEASE, AND THYROID DISEASE. PATIENT'S STATED THAT PATIENT HAS NO HISTORY OF SUBSTANCE ABUSE OR MENTAL HEALTH. Admitted From Home Pre-Admission Level Of Functioning Status Independent/Ambulatory Prior Resources/Services Used In Last 12 Months No Prior Resources Used Prior DME No Prior DME Used Dialysis Comments N/A Living Situation Apartment Lives With Family Lives With Spouse Other Living Situation/Comment REPORTED THAT PATIENT LIVES WITH HIM AND THEIR SON. Patient Had Caregiver No Home Support No Caregiver Issues Financial Issues No Known Financial Issue Referral To The Financial Counselor Needed No Factors/Needs No D/C Needs Identified Explanation And Or Other Factors Affecting/Possible DC Needs PATIENT'S REPORTED THAT HE WOULD PROVIDE TRANSPORTATION AT DISCHARGE. Pt/Rep Participated In Discharge Plan Yes Patient/Family Agress With Discharge Plan Yes Discharge Plan Comments TENTATIVE DISCHARGE PLAN IS FOR PATIENT TO RETURN HOME. DC Plan Status Initiated
--- NOTE | 2020-10-09 12:24 | NUR ---
VITAL SIGNS TAKEN AND RECORDED, STABLE.
--- NOTE | 2020-10-09 14:24 | NUR ---
TO TOILET AMBULATORY, VOIDED FREELY CLAIMED, NOT IN DISTRESS NOTED
--- NOTE | 2020-10-09 15:37 | NUR ---
PATIENT HAS BEEN SCREENED AND CATEGORIZED MODERATE NUTRITION RISK. PATIENT WILL BE SEEN WITHIN 3-5 DAYS OF ADMISSION. 10/11/20 10/13/[address]
--- NOTE | 2020-10-09 16:05 | NUR ---
FULLY AWAKE AND ALERT, NOT IN DISTRESS NOTED
--- NOTE | 2020-10-09 16:18 | NUR ---
RECEIVED VERBAL ORDER FROM DR ELLIOTT CAPACITY ANALYST ORDERED STRESS TEST FOR TOMORROW 10/05/20 AT 1100 NOTIFIED THE BUILDING MAINTENANCE MECHANIC.
[2020-10-09] MEDS ORDERED: MAGNESIUM OXIDE 400 MG TAB PO PRN (17:00)
[2020-10-09] MEDS ORDERED: ATORVASTATIN 20 MG TAB PO SCH (17:00)
--- NOTE | 2020-10-09 17:05 | NUR ---
DUE MEDICATION GIVEN
--- NOTE | 2020-10-09 18:08 | NUR ---
FOR STRESS TEST TOMORROW AT 1100H, INSTRUCTED NO CAFFEINE 8HOURS PRIOR THE PROCEDURE, VERBALIZED UNDERSTANDING
--- NOTE | 2020-10-09 19:25 | NUR ---
ENDORSED TO CORN SHUCKER IN STABLE CONDITION FOR CONTINUITY OF CARE
[2020-10-09 20:00] VITALS: BP 98/52
--- NOTE | 2020-10-09 20:00 | NUR ---
RECEIVED BEDSIDE REPORT FROM DAY RN FOR CONTINUITY OF CARE. PT A/A/OX4, OMANI SPEAKING ONLY. USED THE PHONE TO OBTAIN A SKIRT PANEL ASSEMBLER. PT DENIES ANY CHEST PAIN,SOB, PALPITATIONS AND DIZZINESS. VSS, AFEBRILE, SATING 98% ON RA.SR ON SPECIAL AGENT SECRET SERVICE, HR-73.IVF INFUSING ORDERED. FALL PRECAUTION IMPLEMENTED.INSTRUCTED TO CALL FOR ASSISTANCE AT ALL TIMES. PT VERBALIZED UNDERSTANDING WHIT THE POC. CALL LIGHT WITHIN REACH. WILL CONTINUE POC AND MONITORING.
--- NOTE | 2020-10-09 22:00 | NUR ---
HELD THE LOPRESSOR ORDERED FOR 2100 DUE TO PATIENT BP 98/52, HR-73. WILL CONTINUE TO MONITOR THE PT VS.
[2020-10-10] VITALS: BP 111/57
--- NOTE | 2020-10-10 | NUR ---
PATIENT VITAL SIGNS STABLE,AFEBRILE, SATING 99% ON RA. SR ON DIE TRIMMER, HR-73. NO COMPLAIN OF PAIN.
[2020-10-10] MEDS: NACL 0.9% 1,000 ML IV SCH (00:40)
--- NOTE | 2020-10-10 02:00 | NUR ---
PATIENT ASLEEP AT THIS TIME. VISIBLE CHEST RISE AND FALL NOTED. SAFETY MEASURES IN PLACED.
[2020-10-10 04:00] VITALS: BP 106/55
--- NOTE | 2020-10-10 04:00 | NUR ---
PATIENT VITAL SIGNS STABLE,AFEBRILE, SATING 99% ON RA. SR ON OVERHEAD GARAGE DOOR HANGER, HR-66. NO COMPLAIN OF PAIN AT THIS TIME.
--- NOTE | 2020-10-10 06:19 | NUR ---
PT STABLE. NO ACUTE EVENTS THROUGHOUT THE NIGHT. NO SIGN AND SYMPTOMS OF DISTRESS NOTED AT THIS TIME. NO COMPLAIN OF PAIN. ALL NEEDS ATTENDED. CALL LIGHT WITHIN REACH. WILL ENDORSE THE PT TO THE ONCOMING RN FOR CONTINUITY OF CARE.
--- NOTE | 2020-10-10 07:01 | NUR ---
INSTRUCTED PT NOT TO EAT AND DRINK ANYTHING ESPECIALLY NO CAFFEINE. PT MADE AWARE THAT SHE IS GOING TO STRESS TEST @ 11AM TODAY. SERVOMECHANISM ASSEMBLER PROVIDED AND PT VERBALIZED UNDERSTANDING.
--- NOTE | 2020-10-10 07:28 | NUR ---
PT STABLE. ENDORSED THE PT TO THE DAY RN RELYN FOR CONTINUITY OF CARE. SIGNING OFF.
--- NOTE | 2020-10-10 07:29 | NUR ---
RECEIVED ENDORSEMENT FROM NIGHT AWAKE, ALERT, ORIENTEDX4, BREATHING SPONTANEOUSLY AT ROOM AIR, NON LABORED NOTED. WITH ONGOING IV FLUID WITH 0.9% NS AT 60ML/HOUR INFUSING AT RT AC G 22 IV CANNULA NOTED. DENIES PAIN NOTED. SAFETY MEASURES IN PLACE AND CONTINUE MONITOR.
[2020-10-10 07:38] LABS: BASOPHILS % (AUTO) 0.6 % (0.0-2.0); EOSINOPHILS # (AUTO) 0.2 K/uL (0-0.4); EOSINOPHILS % (AUTO) 2.2 % (0.0-4.0); HEMATOCRIT 26.8 % (36-48); LYMPHOCYTES % (AUTO) 38.6 % (20.5-51.1); MEAN CORPUSCULAR HEMOGLOBIN 32 pg (27-31); MEAN CORPUSCULAR HGB CONC 34 g/dL (33-37); MONOCYTES # (AUTO) 0.5 K/uL (0.8-1.0); MONOCYTES % (AUTO) 6.6 % (1.7-9.3); PLATELET COUNT (AUTO) 134 K/uL (140-450); RED BLOOD CELL COUNT(AUTO) 2.85 MIL/uL (4.20-5.40); RED CELL DISTRIBUTION WIDTH 12.6 % (11.6-13.7); WHITE BLOOD COUNT (AUTO) 7.7 K/uL (4.8-10.8)
[2020-10-10 07:48] LABS: ANION GAP 16.1 (8-16); CARBON DIOXIDE 20.9 mmol/L (21-32); CREATININE 2.1 mg/dL (0.6-1.3)
[2020-10-10 08:00] VITALS: BP 136/67
--- NOTE | 2020-10-10 08:09 | NUR ---
NUCLEAR MEDICINE PERSONNEL BAO CALLED AND ACCORDING TO HIM, HE CANNOT DO STRESS TODAY AND HE ALREADY INFORMED DR. ELLIOTT CARDIOLOGY YESTERDAY.
[2020-10-10 08:25] LABS: T4 (THYROXINE) 7.8 ug/dL (4.5-12.0)
[2020-10-10] MEDS: ECOTRIN 81 MG TABEC PO SCH (08:33)
[2020-10-10] MEDS: lisinopriL 5 MG TAB PO SCH (08:33)
[2020-10-10] MEDS: NIFEdipine 30 MG TABER PO SCH (08:33)
[2020-10-10] MEDS: METOPROLOL 25 MG TAB PO SCH (08:34)
[2020-10-10] MEDS: PANTOPRAZOLE 40 MG TABEC PO SCH (08:35)
[2020-10-10] MEDS: CHLORTHALIDONE 25MG TAB PO SCH (08:37)
--- NOTE | 2020-10-10 08:39 | NUR ---
FULLY AWAKE AND ALERT, DUE MEDICATION GIVEN
[2020-10-10] MEDS ORDERED: METO25TA PO (10:56)
[2020-10-10] MEDS ORDERED: REGADENOSON 0.4 MG/5 ML SYR IV SCH (11:00)
--- NOTE | 2020-10-10 11:01 | NUR ---
DUE MEDICATION LEXISCAN NON ADMINISTER, STRESS TEST WAS CANCELLED
[2020-10-10 11:49] VITALS: BP 136/67
--- NOTE | 2020-10-10 12:13 | NUR ---
VITAL SIGNS TAKEN AND RECORDED, STABLE.
--- NOTE | 2020-10-10 13:13 | NUR ---
IV CANNULA REMOVED AND DRESSING APPLIED. DISCHARGE PACKET INSTRUCTION GIVEN, VERBALIZED UNDERSTANDING AND TO FOLLOW UP HER PCP AFTER 3-5DAYS.
--- NOTE | 2020-10-10 13:45 | NUR ---
DISCHARGED IN STABLE CONDITION PER WHEELCHAIR. BREATHING SPONTANEOUSLY AT ROOM AIR.
== END 2020-10-10 13:45 | disposition home or self-care (01) | DRG 243 ==
LOC: MED 19:25 → MTU 22:37
PROVIDERS: ADMIT Family Medicine; ATTEND Family Medicine
DX: K21.9 Gastro-esophageal reflux disease without esophagitis (principal); N18.4 Chronic kidney disease, stage 4 (severe); N17.0 Acute kidney failure with tubular necrosis; I07.1 Rheumatic tricuspid insufficiency; I12.9 Hypertensive chronic kidney disease with stage 1 through stage 4 chronic kidney disease, or unspecified chronic kidney disease; E78.5 Hyperlipidemia, unspecified; E03.9 Hypothyroidism, unspecified; Z82.49 Family history of ischemic heart disease and other diseases of the circulatory system; Z91.040 Latex allergy status; Z20.828 Contact with and (suspected) exposure to other viral communicable diseases; R00.0 Tachycardia, unspecified; I34.0 Nonrheumatic mitral (valve) insufficiency; D64.9 Anemia, unspecified; H57.12 Ocular pain, left eye; Z90.49 Acquired absence of other specified parts of digestive tract; Z79.899 Other long term (current) drug therapy; R65.10 Systemic inflammatory response syndrome (SIRS) of non-infectious origin without acute organ dysfunction
CPT/HCPCS: 36415; 71045; 80048; 80053; 80305; 81003; 82150; 83036; 83690; 83735; 83880; 84100; 84436; 84439; 84443; 84479; 84484; 85025; 85610; 85730; 87081; 93005; 96361; 96374; 96375; 97110; 97116; 97161-GP; 97530; 99285; J1644; J2270; J2405; J2785

== ENCOUNTER 2022-12-07 10:19 | Emergency (ER) | payer MEDICAID, OTHER ==
[~2022-12-07] VITALS: Ht 162.6 cm; Wt 54.0 kg
[~2022-12-07 10:19] MED LIST changes: +ASPI-1822 PO; +ATOR10TA PO; -ATOR20TA40 PO; +CHLO25TA33 PO; -GEMF-65 PO; -KETO10TA2 PO; -MAGN241.1 PO; +METO25TA PO; +OMEP-303 PO; -ONDA-24 PO; -OSC500 PO; +SODI650T2 PO; -[UNRECOGNIZED DRUG - CODE] PO
[2022-12-07 10:22] VITALS: BP 168/67
[2022-12-07] MEDS ORDERED: traMADol 50 MG TAB PO ONE (10:50)
[2022-12-07] MEDS ORDERED: TRAM-748 PO (10:54)
[2022-12-07] MEDS ORDERED: VALA1TAB2 PO (10:54)
[2022-12-07 11:20] VITALS: BP 130/82
== END 2022-12-07 11:20 | disposition home or self-care (01) ==
LOC: MED 10:19
DX: B02.9 Zoster without complications (principal); H57.11 Ocular pain, right eye; I12.9 Hypertensive chronic kidney disease with stage 1 through stage 4 chronic kidney disease, or unspecified chronic kidney disease; N18.9 Chronic kidney disease, unspecified; E03.9 Hypothyroidism, unspecified; Z91.040 Latex allergy status; Z79.82 Long term (current) use of aspirin; Z79.899 Other long term (current) drug therapy
CPT/HCPCS: 99283